=== PATIENT | female | born 1940 | race Caucasian/White ===

== ENCOUNTER 2020-11-12 23:50 | Emergency (ER) | payer MEDICARE ==
[~2020-11-12] VITALS: Ht 160 cm; Wt 78.6 kg
[2020-11-13] MEDS ORDERED: MORPHINE SULFATE 10 MG/ML SYRINGE. SQ ONE (00:15)
[2020-11-13] MEDS ORDERED: ORPHENADRINE CITRATE 60 MG/2 ML VIAL. IM ONE (00:15)
--- NOTE | 2020-11-13 00:16 | PHYS DOC ---
Past History Past Medical History: Anxiety, Arthritis, Sciatica Past Surgical History: Lumbar Laminectomy General Adult EDM: Chief Complaint: BACK PAIN OR INJURY HPI: HPI: "..I got a bad back... I ve had a bunch of surgeries on it.. and last one they took out a lot of hard malcolm.. but left the screws.." " I think that is the problem now... beside the scaring..>" Patient is a 80 year old female who presents with above hx and complaints of low back pain., Patient has history of chronic low back pain resulting in surgery in 2005, 2015, 2018 2 surgeries in the month of November, and somewhat periodic acute exacerbation of back pain due to hardware. Patient normally follows with Dr. Sagar Pak as primary. No history of recent trauma. Does have chronic back pain and disability resulting in need of a cane to ambulate. Patient localizes pain in her lumbar sacral area where she has a very large scar. There is some radiation into right hip. Has had problems with collections of fluid in the lumbar sacral area. No history recent travel. No specific ill contacts. No history immunosuppression. No change in baseline pain meds. Has had previous episodes of kidney stone but states his pain is not the same. Review of Systems: Review of Systems: Constitutional: Denies fever or chills Eyes: Denies change in visual acuity HENT: Denies nasal congestion or sore throat Respiratory: Denies cough or shortness of breath Cardiovascular: Denies chest pain or edema GI: Denies abdominal pain, nausea, vomiting, bloody stools or diarrhea : Denies dysuria Musculoskeletal: Complains of exacerbation of her chronic back pain or joint pain Integument: Denies rash Neurologic: Denies headache, focal weakness or sensory changes Endocrine: Denies polyuria or polydipsia Lymphatic: Denies swollen glands Psychiatric: Denies depression or anxiety Family History: Family History: Noncontributory to presentation Current Medications: Current Meds: See nursing for home meds Allergies: Allergies: Allergies Coded Allergies Type Severity Reaction Last Updated Verified No Known Drug Allergies 11/13/20 No Physical Exam: PE: Constitutional: Moderate acute distress, non-toxic appearance. [] HENT: Normocephalic, atraumatic, bilateral external ears normal, oropharynx moist, no oral exudates, nose normal. [] Eyes: PERRLA, EOMI, conjunctiva normal, no discharge. [] Neck: Normal range of motion, no tenderness, supple, no stridor. [] Cardiovascular:Heart rate regular rhythm, no murmur, PMI to left Lungs & Thorax: Bilateral breath sounds clear to auscultation [] Abdomen: Bowel sounds normal, soft, no tenderness, no masses, no pulsatile masses. Obese. Old surgery scars. Skin: Warm, dry, no erythema, no rash. Poor turgor Back: No tenderness, no CVA tenderness. Multiple back lumbar sacral surgery scars Extremities: No tenderness, no cyanosis, no clubbing, ROM intact, no edema. Pain along the right sciatic nerve. Patient walks with a cane Neurologic: Alert and oriented X 3, DTRs +2 brachial and patella, and does have distal sensory, no new focal deficits noted. [] Psychologic: Affect anxious, judgement normal, mood normal. [] EKG: EKG: [] Radiology/Procedures: Radiology/Procedures: [][place] [address] IMAGING REPORT Signed PATIENT: ALANA MEDRANO ACCOUNT: [id number] : 1940 LOCATION: ER AGE: 80 SEX: F EXAM STATUS: PRE ER ORD. PHYSICIAN: VERA RODRIGUEZ MD REASON: pain PROCEDURE: CT LUMBAR SPINE WO CONTRAST CT LUMBAR SPINE WO Date: 11/13/2020 2:00 AM Indication: pain Comparison: None. Technique: Helical CT images of the lumbar spine were obtained without contrast. Coronal and sagittal reformatted images were also performed. One or more of the following dose reduction techniques were utilized: Automated exposure control (AEC), Adjustment of mA and/or kV according to patient size, Use of iterative reconstruction technique such as ASiR, CT scan done according to ALARA and image gently/image wisely. Findings: Postsurgical changes of posterior decompression and posterior instrumentation at L-2-S1. Surgical hardware is intact. No periscrew lucency. Right L2 screw passes through the lateral aspect of the spinal canal. Fluid collection in the posterior paraspinal operative bed measuring 5.2 x 2.4 x 9.4 cm (TV by AP by CC). Trace retrolisthesis at T12-L1 and L1-2. No acute fracture. Severe multilevel degenerative disc space height loss. Multilevel spinal canal stenosis secondary to multilevel disc bulging and facet arthrosis moderate at T12-L1 and moderate to severe at L1-2. Multilevel predominately mild and moderate neuroforaminal narrowing, severe at L1-2. Nonobstructive left renal 4 mm calculus. The visualized abdominal aorta is normal caliber. IMPRESSION: 1. No acute lumbar spine fracture. 2. Extensive postsurgical changes. Fluid collection in the posterior paraspinal soft tissues is likely postsurgical, sterility not assessed by CT. 3. Advanced lumbar spondylosis. Electronically signed by: Teodoro Diaz MD (11/13/2020 2:42 AM) [facility] DICTATED AND SIGNED BY: TEODORO DIAZ MD DATE: 11/13/20231 CC: VERA RODRIGUEZ MD ~MTH0 0 Heart Score: C/O Chest Pain: N/A Risk Factors: Risk Factors: DM, Current or recent (<one month) smoker, HTN, HLP, family history of CAD, obesity. Risk Scores: Score 0 - 3: 2.5% MACE over next 6 weeks - Discharge Home Score 4 - 6: 20.3% MACE over next 6 weeks - Admit for Clinical Observation Score 7 - 10: 72.7% MACE over next 6 weeks - Early Invasive Strategies Course & Med Decision Making: Course & Med Decision Making Pertinent Labs and Imaging studies reviewed. (See chart for details) Patient follow-up with primary care and neurosurgery. May need further evaluation of spinal stenosis. Consider MRI or intrathecal contrast to evaluate for spinal stenosis. Patient take meds as previous directed. May take Vicoprofen up to 4 times a day. Return if any concerns. Impression: 1. Exacerbation of chronic back pain 2. Spinal stenosis [] Dragon Disclaimer: Dragon Disclaimer: This electronic medical record was generated, in whole or in part, using a voice recognition dictation system. Departure Departure: Scripts Hydrocodone/Ibuprofen (HYDROCODONE-IBUPROFEN 7.5-200 ) 1 Each Tablet 1 TAB PO PRN Q6HRS PRN for PAIN, #30 TAB 0 Refills Prov: VERA RODRIGUEZ MD 11/13/20 [place] Disclaimer This chart was dictated in whole or in part using Voice Recognition software in a busy, high-work load, and often noisy Emergency Department environment. It may contain unintended and wholly unrecognized errors or omissions. VERA RODRIGUEZ MD Nov 13, 2020 00:16
--- NOTE | 2020-11-13 02:45 | RAD ---
CT LUMBAR SPINE WO Date: 11/13/2020 2:00 AM Indication: pain Comparison: None. Technique: Helical CT images of the lumbar spine were obtained without contrast. Coronal and sagitta l reformatted images were also performed. One or more of the following dose reduction techniques were utilized: Automated exposure control (AEC), Adjustment of mA and/or kV according to patient size, Us e of iterative reconstruction technique such as ASiR, CT scan done according to ALARA and image gentl y/image wisely. Findings: Postsurgical changes of posterior decompression and posterior instrumentation at L-2-S1. Surgical vickey dware is intact. No periscrew lucency. Right L2 screw passes through the lateral aspect of the spinal canal. Fluid collection in the posterior paraspinal operative bed measuring 5.2 x 2.4 x 9.4 cm (TV by AP by CC). Trace retrolisthesis at T12-L1 and L1-2. No acute fracture. Severe multilevel degenerative disc space height loss. Multilevel spinal canal stenosis secondary to multilevel disc bulging and facet arthrosis moderate at T12-L1 and moderate to severe at L1-2. Multil evel predominately mild and moderate neuroforaminal narrowing, severe at L1-2. Nonobstructive left renal 4 mm calculus. The visualized abdominal aorta is normal caliber. IMPRESSION: 1. No acute lumbar spine fracture. 2. Extensive postsurgical changes. Fluid collection in the posterior paraspinal soft tissues is likel y postsurgical, sterility not assessed by CT. 3. Advanced lumbar spondylosis. Electronically signed by: Aki Diaz MD (11/13/2020 2:42 AM) [facility]
[2020-11-13 02:59] VITALS: BP 125/74
[2020-11-13] MEDS ORDERED: HYDR-1179 PO (02:59)
[2020-11-13 03:36] LABS: CLARITY,URINE CLEAR; COLOR,URINE YELLOW
[2020-11-13 03:37] LABS: BACTERIA,URINE 0 /HPF (0-FEW); BILIRUBIN,URINE NEG (NEG); GLUCOSE,URINE NEG (NEG); NITRITE,URINE NEG (NEG); RBC,URINE 0 /HPF (0-2); SQUAMOUS EPITHELIAL CELL,UR OCC /LPF; UROBILINOGEN,URINE 0.2 mg/dL (0.2 mg/dL); WBC,URINE OCC /HPF (0-4)
== END 2020-11-13 03:49 | disposition home or self-care (01) ==
LOC: ER 23:50 → EDBD 23:50 → ER 11-13 03:49
DX: M48.061 Spinal stenosis, lumbar region without neurogenic claudication (principal); G89.29 Other chronic pain; M54.5 Low back pain; F41.9 Anxiety disorder, unspecified; M19.90 Unspecified osteoarthritis, unspecified site; Z90.89 Acquired absence of other organs; Z98.890 Other specified postprocedural states
CPT/HCPCS: 72131; 81001; 96372; 99284; J2270; J2360

== ENCOUNTER → 2020-12-20 | Outpatient (CLI) | payer MEDICARE ==
[~2020-12-20] MED LIST: HYDR-1179 PO
--- NOTE | 2020-12-20 14:34 | RAD ---
CT lumbar spine without contrast PQRS statement: CT scans at this facility use dose reduction including either automated exposure cont rol, iterative reconstructions, and /or weight based radiation dosing via mA and kV modification when appropriate to reduce radiation dose to as low as reasonably achievable. HISTORY: Low back pain. COMPARISON: CT lumbar spine November 13, 2020. FINDINGS: Upper lumbar scoliosis. Mild chronic right lateral and anterior wedge L1 vertebral compress ion deformity and extensive bony sclerosis and endplate subcortical bony cysts at L1-L2 with lesser i nvolvement at T12-L1. This is stable. Postoperative change of laminectomies at L2-L5 and small midlin e laminotomy at L1. Instrumentation with pedicle screws and rods L2-S1. The right L2 pedicle screw is angled medial breaching the medial facet cortex and crossing the midline spinal canal the tip termin ating at the posterior vertebral body. No bone lysis surrounding the hardware to suggest loosening. S mall lytic defect left posterior iliac crest presumably a bone donor site or perhaps a bone cyst stab le. There is ovoid hypodensity with peripheral calcification or bone fragments posterior the laminect omies which may be chronic fluid or scarring. 1 cm cyst central liver. Gallstone. Small left renal ca lculus. Small right renal cyst. Disc disease described below. T12-L1: Disc height loss, bony sclerosis, bulky disc osteophyte, severe spinal canal and neural russell inal stenoses, stable. L1-L2: Disc height loss, bony sclerosis, bulky disc osteophyte, facet hypertrophy and spurring, sever e neural foraminal stenoses. Midline bony spinal canal is decompressed. L2-L3: Bony spinal canal decompressed. Facet hypertrophy and spurring and left lateral disc osteophyt e with moderate left neural foraminal stenosis. Right neural foramen patent. L3-L4: Bony spinal canal decompressed. Facet hypertrophy and spurring contributes to mild to moderate left neural foraminal stenosis. Right neural foramen patent. L4-L5: Bony spinal canal decompressed. Lateral disc osteophyte and facet hypertrophy and spurring wit h bilateral mild to moderate neural foraminal stenoses. L5-S1: Bony spinal canal decompressed. Facet spurring and mild lateral disc osteophyte with mild neur al foraminal stenoses. IMPRESSION: 1. No acute osseous injury of the lumbar spine. 2. Surgical changes, lumbar scoliosis and advanced degenerative disc disease and facet arthrosis with spinal canal and neural foraminal stenoses similar the prior exam as described above. The right L2 p edicle screw crosses through the spinal canal similar to the prior exam. Electronically signed by: Johan Chavis MD (12/20/2020 2:32 PM) [facility]
== END ==
LOC: CT 10:43
PROVIDERS: ATTEND Neurological Surgery
DX: M41.86 Other forms of scoliosis, lumbar region (principal); M51.36 Other intervertebral disc degeneration, lumbar region; M48.061 Spinal stenosis, lumbar region without neurogenic claudication; M47.816 Spondylosis without myelopathy or radiculopathy, lumbar region; M25.78 Osteophyte, vertebrae
CPT/HCPCS: 72131

== ENCOUNTER → 2021-01-25 | Outpatient (CLI) | payer MEDICARE ==
[2021-01-25 12:47] LABS: ALBUMIN 3.8 g/dL (3.4-5.0); ALBUMIN/GLOBULIN RATIO 1.2 (1.0-1.7); CALCIUM 9.3 mg/dL (8.5-10.1); CREATININE 1.1 mg/dL (0.6-1.0); POTASSIUM 4.4 mmol/L (3.5-5.1); TOTAL BILIRUBIN 0.4 mg/dL (0.2-1.0); TOTAL PROTEIN 7.1 g/dL (6.4-8.2)
[2021-01-25 16:15] LABS: THYROID STIM HORMONE (TSH) 1.151 uIU/mL (0.358-3.740)
[2021-01-26 00:14] LABS: HEMOGLOBIN A1C 6.2 % (4.8-5.6)
== END ==
LOC: LAB 10:23
PROVIDERS: ATTEND Internal Medicine Cardiovascular Disease
DX: E78.5 Hyperlipidemia, unspecified (principal); R73.9 Hyperglycemia, unspecified
CPT/HCPCS: 36415; 80053; 80061; 83036; 83880; 84443